=== PATIENT | female | born 2000 | race Hispanic/Latino ===

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

== ENCOUNTER 2023-04-29 23:38 | Emergency (ER) | payer MEDICAID ==
[~2023-04-29] VITALS: Ht 152.4 cm; Wt 78.9 kg
[~2023-04-29 23:38] MED LIST: CEPH500B PO; FERR-82 PO; PREN1TAB80 PO
[2023-04-30 00:20] LABS: CREATININE 0.5 mg/dL (0.5-1.5); POTASSIUM 3.3 mmol/L (3.5-5.1)
[2023-04-30 00:23] LABS: HEMATOCRIT 38.3 % (36-48); MEAN CORPUSCULAR HEMOGLOBIN 30.5 pg (27.0-33.0); MEAN CORPUSCULAR HGB CONC 34.2 g/dL (32.0-36.0); MEAN CORPUSCULAR VOLUME 89.1 fL (80-100); RED BLOOD CELL COUNT(AUTO) 4.3 MIL/uL (4.00-5.50); WHITE BLOOD COUNT (AUTO) 7.9 K/uL (4.8-10.8)
[2023-04-30 00:25] LABS: ALBUMIN 3.8 g/dL (3.5-5.0); TOTAL PROTEIN, SERUM 7.4 g/dL (6.0-8.3)
[2023-04-30 00:32] LABS: APPEARANCE,URINE CLEAR (CLEAR); BILIRUBIN,URINE NEGATIVE (NEGATIVE); COLOR,URINE LIGHT-YELLOW (YELLOW); GLUCOSE, URINE (UA) NEGATIVE (NEGATIVE); KETONES,URINE NEGATIVE (NEGATIVE); LEUKOCYTE ESTERASE ,URINE NEGATIVE Leu/uL (NEGATIVE); NITRATE,URINE NEGATIVE (NEGATIVE); OCCULT BLOOD,URINE NEGATIVE (NEGATIVE); PH,URINE 6.5 (5.0-8.0); PROTEIN,URINE NEGATIVE (NEGATIVE); UROBILINOGEN,URINE 0.2 mg/dL (0.2-1.0)
[2023-04-30 00:36] LABS: HCG,QUALITATIVE URINE POSITIVE (NEGATIVE)
[2023-04-30] MEDS ORDERED: ONDA-104 PO (02:59)
[2023-04-30 03:07] VITALS: BP 128/78
== END 2023-04-30 03:12 | disposition home or self-care (01) ==
LOC: EDH 23:38
DX: O99.611 Diseases of the digestive system complicating pregnancy, first trimester (principal); K80.20 Calculus of gallbladder without cholecystitis without obstruction; O21.9 Vomiting of pregnancy, unspecified; O26.891 Other specified pregnancy related conditions, first trimester; R19.7 Diarrhea, unspecified; Z3A.01 Less than 8 weeks gestation of pregnancy
CPT/HCPCS: 36415; 76705; 76801; 80053; 81003; 81025; 84702; 85027

== ENCOUNTER 2023-05-04 10:18 | Emergency (ER) | payer MEDICAID ==
[~2023-05-04] VITALS: Ht 152.4 cm; Wt 77.1 kg
[~2023-05-04 10:18] MED LIST changes: +ONDA-104 PO
[2023-05-04 11:21] LABS: BASOPHILS % (AUTO) 0.4 % (0.0-5.0); EOSINOPHILS % (AUTO) 0.5 % (0.0-8.0); HEMATOCRIT 38.2 % (36-48); LYMPHOCYTES % (AUTO) 24.1 % (21.0-51.0); MONOCYTES % (AUTO) 3.4 % (3.0-13.0); NEUTROPHILS % (AUTO) 71.2 % (40.0-77.0); PLATELET COUNT (AUTO) 224 K/uL (130-400); RED BLOOD CELL COUNT(AUTO) 4.34 MIL/uL (4.00-5.50); RED CELL DISTRIBUTION WIDTH 11.9 % (11.0-15.5); WHITE BLOOD COUNT (AUTO) 8.1 K/uL (4.8-10.8)
[2023-05-04 11:55] LABS: ALBUMIN 3.5 g/dL (3.5-5.0); CREATININE 0.6 mg/dL (0.5-1.5); POTASSIUM 3.8 mmol/L (3.5-5.1); TOTAL PROTEIN, SERUM 7.2 g/dL (6.0-8.3)
[2023-05-04] MEDS ORDERED: LACTATED RINGERS 1000ML 1,000 ML IV ONE (15:00)
[2023-05-04 15:14] LABS: APPEARANCE,URINE CLEAR (CLEAR); BILIRUBIN,URINE NEGATIVE (NEGATIVE); COLOR,URINE YELLOW (YELLOW); GLUCOSE, URINE (UA) 70 mg/dL (NEGATIVE); KETONES,URINE 20 mg/dL (NEGATIVE); LEUKOCYTE ESTERASE ,URINE NEGATIVE Leu/uL (NEGATIVE); NITRATE,URINE NEGATIVE (NEGATIVE); OCCULT BLOOD,URINE NEGATIVE (NEGATIVE); PROTEIN,URINE 10 mg/dL (NEGATIVE); UROBILINOGEN,URINE 0.2 mg/dL (0.2-1.0)
[2023-05-04 15:30] LABS: BACTERIA,URINE RARE /HPF (None Seen); MUCUS,URINE FEW LPF (None Seen); SQUAMOUS EPITHELIAL CELL,UR FEW /HPF (0-2); WBC,URINE 0-1 /HPF (0-1)
[2023-05-04 18:24] VITALS: BP 105/60
== END 2023-05-04 18:26 | disposition home or self-care (01) ==
LOC: EDH 10:18
DX: O20.0 Threatened abortion (principal); Z3A.01 Less than 8 weeks gestation of pregnancy
CPT/HCPCS: 99284; 96360; 76801; 96361; 80053; 84702; 85025; 86900; 86901; 81001; 36415; J7030

== ENCOUNTER 2024-10-13 09:54 | Emergency (ER) | payer MEDICAID ==
[~2024-10-13] VITALS: Ht 152.4 cm; Wt 74.8 kg
[~2024-10-13 09:54] MED LIST changes: -CEPH500B PO; -FERR-82 PO; -ONDA-104 PO
[2024-10-13 10:41] LABS: APPEARANCE,URINE CLEAR (CLEAR); BILIRUBIN,URINE NEGATIVE (NEGATIVE); COLOR,URINE YELLOW (YELLOW); GLUCOSE, URINE (UA) NEGATIVE (NEGATIVE); KETONES,URINE NEGATIVE (NEGATIVE); LEUKOCYTE ESTERASE ,URINE 75 Leu/uL (NEGATIVE); NITRATE,URINE NEGATIVE (NEGATIVE); OCCULT BLOOD,URINE NEGATIVE (NEGATIVE); PROTEIN,URINE 20 mg/dL (NEGATIVE)
[2024-10-13 10:48] LABS: ADD UA MICROSCOPIC YES
[2024-10-13 10:49] LABS: BACTERIA,URINE RARE /HPF (None Seen); MUCUS,URINE RARE LPF (None Seen); SQUAMOUS EPITHELIAL CELL,UR FEW /HPF (0-2)
[2024-10-13] MEDS: ondanSETRON ODT 4MG TAB SL ONE (11:00)
[2024-10-13 11:18] VITALS: BP 128/90; PULSE 76; RESP 16; TEMP 98; O2SAT 99
[2024-10-13 11:20] LABS: BASOPHILS # (AUTO) 0.04 K/uL (0.00-0.20); BASOPHILS % (AUTO) 0.4 % (0.0-5.0); EOSINOPHILS # (AUTO) 0.05 K/uL (0.00-0.70); EOSINOPHILS % (AUTO) 0.5 % (0.0-8.0); HEMATOCRIT 40.6 % (36-48); LYMPHOCYTES # (AUTO) 1.6 K/uL (1.0-4.8); LYMPHOCYTES % (AUTO) 16.6 % (21.0-51.0); MEAN CORPUSCULAR HEMOGLOBIN 30.3 pg (27.0-33.0); MONOCYTES # (AUTO) 0.3 K/uL (0.1-1.0); MONOCYTES % (AUTO) 3.3 % (3.0-13.0); NEUTROPHILS # (AUTO) 7.6 K/uL (1.8-7.7); NEUTROPHILS % (AUTO) 77.2 % (40.0-77.0); PLATELET COUNT (AUTO) 268 K/uL (130-400); RED BLOOD CELL COUNT(AUTO) 4.56 MIL/uL (4.00-5.50); RED CELL DISTRIBUTION WIDTH 11.6 % (11.0-15.5); WHITE BLOOD COUNT (AUTO) 9.9 K/uL (4.8-10.8)
[2024-10-13 11:34] LABS: CARBON DIOXIDE 28 mmol/L (21-32); CHLORIDE 100 mmol/L (101-111); CREATININE 0.7 mg/dL (0.5-1.0); GLOMERULAR FILTR. RATE CALC 125 mL/min (>90); GLUCOSE,RANDOM 106 mg/dL (70-105); POTASSIUM 3.8 mmol/L (3.5-5.1); SODIUM SERUM 136 mmol/L (136-145); UREA NITROGEN, BLOOD 14 mg/dL (7-18)
[2024-10-13 11:39] LABS: ALANINE AMINOTRANSFERASE 28 U/L (12-78); ALBUMIN 4.1 g/dL (3.5-5.0); ASPARTATE AMINOTRANSFERASE 16 U/L (10-37); BILIRUBIN,DIRECT < 0.1 mg/dL (0.0-0.3); BILIRUBIN,TOTAL 0.2 mg/dL (0.2-1.0); TOTAL PROTEIN, SERUM 7.5 g/dL (6.0-8.3)
--- NOTE | 2024-10-13 11:43 | HMCIMG ---
US ABDOMINAL RUQ\E\LTD HISTORY: Abdominal pain COMPARISON: None TECHNIQUE: Right upper quadrant abdominal ultrasound study was performed. FINDINGS: Liver measures 14 cm. The visualized portion of the pancreas is within normal limits. Liver is echogenic consistent with liver parenchymal disease. Gallstones are seen in the gallbladder. Common duct measures 3 mm. No evidence of gallbladder wall thickening is seen. Right kidney measures 11 x 5 x 5 cm. No hydronephrosis is seen of the right kidney. IMPRESSION: 1. Gallstones. No ductal dilatation is seen. 2. No hydronephrosis is seen.
[2024-10-13] MEDS ORDERED: FAMO-136 PO (12:42)
[2024-10-13] MEDS ORDERED: KETO10TA2 PO (12:42)
[2024-10-13] MEDS ORDERED: ONDA-243 PO (12:42)
--- NOTE | 2024-10-13 12:45 | ERN ---
General Chief Complaint: Abdominal Pain Stated Complaint: RUQ PAIN Time Seen by MD: :59 Time Seen by Midlevel: 09:59 Source: patient History of Present Illness Initial Comments Patient is a 24-year-old female with a past medical history of cholelithiasis presenting to the emergency department with right upper quadrant abdominal pain. Patient states her symptoms started yesterday at 2:00 a.m. in the morning. Her symptoms consist of nausea and intermittent episodes of sharp/crampy right upper quadrant abdominal pain. She denies any episodes of vomiting. Denies any diarrhea, fever, chills, or any other symptoms at this time. She has been seen previously in the emergency department for the same complaint where she was diagnosed with coli lithiasis. She has not seen a primary care doctor outpatient and has not been referred to a general surgeon. Denies any past surgical history. Denies being . Allergies: Coded Allergies: No Known Drug Allergies (Unverified Allergy, Unknown, 12/14/23) Home Meds Reported Medications Vits W-Ca,Fe,FA(<1Mg) ( Vitamins) 1 Each Tablet, 1 EACH PO DAILYDINNER, TAB 08/21/21 Past Medical History Past Medical History: Gallstones Past Surgical History: None Family History Family History: Negative Social History Social History: Negative, Lives with family Female( History) LMP: Sep 20, 2024 : 2 Para: 1 Aborts: 0 ROS Dictation CONSTITUTIONAL: Negative except for HPI HEAD/FACE: Negative except for HPI EENT: Negative except for HPI RESPIRATORY: Negative except for HPI GASTROINTESTINAL/ABDOMINAL: Negative except for HPI GENITOURINARY: Negative except for HPI MUSCULOSKELETAL: Negative except for HPI INTEGUMENTARY: Negative except for HPI NEUROLOGICAL/PSYCH: Negative except for HPI HEMATOLOGIC/LYMPHATIC: Negative except for HPI All Systems Negative, Except as noted above. 13 point review of systems assessed and all negative except for above. Physical Exam Physical Exam Dictation Vital Signs reviewed General Appearance: Alert, oriented x 3, no acute distress, well developed, nourished. Head and Face: non-traumatic. Eyes: PERRL, pink conjunctivas, eyelid no trauma, anterior chamber with arcus senilis. Ears: Pinnas intact and no signs of trauma or erythema ear canals clear and no discharge TM no erythema Nose: No discharge, no bleeding. Oropharynx: Mouth normal, tongue pink, pharynx clear,no erythema, tonsils no exudates, no abscesses noted, mucous membrane moist Neck: Supple, non-tender, no thyromegaly, no masses, no JVD, no bruits Breast:Deferred Chest:No tenderness, no crepitus, no paradoxical movement, no retractions Lungs:Clear, well-ventilated, symmetric, no rales, no wheezing, no rhonchi, no stridor, good breath sounds bilaterally Heart: Regular rate, regular rhythm, no murmur, no gallops Vascular: no peripheral edema, Abdomen: Soft, positive bowel sounds, nondistended, no guarding, nontender, no rebound, no masses no hepatomegaly, no splenomegaly, no Gross's sign, no hernias. Rectal: Deferred Genital: Deferred Neurological: Normal speech, motor function intact, sensory function intact Musculoskeletal: Neck nontender, full range of motion, back nontender, full range of motion, Extremities: nontender, full range of motion Skin: Color pink, dry, no turgor, no rash, no lacerations, no abrasions, no contusions. Lymphatic: Deferred Results Laboratory and Microbiology Lab and Micro Result Laboratory Tests Test 10/13/24 10:11 10/13/24 11:05 10/13/24 11:08 Urine Color YELLOW (YELLOW) Urine Appearance CLEAR (CLEAR) Urine pH 7.0 (5.0-8.0) Urine Specific [place] 1.037 (1.001-1.031) Urine Protein 20 mg/dL (NEGATIVE) H Urine Glucose (UA) NEGATIVE mg/dL (NEGATIVE) Urine Ketones NEGATIVE mg/dL (NEGATIVE) Urine Occult Blood NEGATIVE (NEGATIVE) Urine Nitrate NEGATIVE (NEGATIVE) Urine Bilirubin NEGATIVE mg/dL (NEGATIVE) Urine Urobilinogen 2.0 mg/dL (0.2-1.0) H Urine Leukocyte Esterase 75 Jose/uL (NEGATIVE) H Urine RBC 2-5 /HPF (0-1) H Urine WBC 2-5 /HPF (0-1) H Urine Squamous Epithelial Cells FEW /HPF (0-2) Urine Bacteria RARE /HPF (None Seen) Serum Test, Qualitative NEGATIVE (NEGATIVE) White Blood Count 9.9 K/uL (4.8-10.8) Red Blood Count 4.56 MIL/uL (4.00-5.50) Hemoglobin 13.8 g/dL (12.0-16.0) Hematocrit 40.6 % (36-48) Mean Corpuscular Volume 89.0 fL (79-99) Mean Corpuscular Hemoglobin 30.3 pg (27.0-33.0) Mean Corpuscular Hemoglobin Concent 34.0 g/dL (32.0-36.0) Red Cell Distribution Width 11.6 % (11.0-15.5) Platelet Count 268 K/uL (130-400) Mean Platelet Volume 9.6 fL (7.5-10.5) Immature Granulocyte % (Auto) 2.0 % (0-1) H Neutrophils (%) (Auto) 77.2 % (40.0-77.0) H Lymphocytes (%) (Auto) 16.6 % (21.0-51.0) L Monocytes (%) (Auto) 3.3 % (3.0-13.0) Eosinophils (%) (Auto) 0.5 % (0.0-8.0) Basophils (%) (Auto) 0.4 % (0.0-5.0) Neutrophils # (Auto) 7.6 K/uL (1.8-7.7) Lymphocytes # (Auto) 1.6 K/uL (1.0-4.8) Monocytes # (Auto) 0.3 K/uL (0.1-1.0) Eosinophils # (Auto) 0.05 K/uL (0.00-0.70) Basophils # (Auto) 0.04 K/uL (0.00-0.20) Absolute Immature Granulocyte (auto 0.20 K/uL (0-1) Nucleated Red Blood Cells 0.0 % (0.0-0.19) Sodium Level 136 mmol/L (136-145) Potassium Level 3.8 mmol/L (3.5-5.1) Chloride Level 100 mmol/L (101-111) L Carbon Dioxide Level 28 mmol/L (21-32) Blood Urea Nitrogen 14 mg/dL (7-18) Creatinine 0.7 mg/dL (0.5-1.0) Glomerular Filtration Rate Calc 125 mL/min (>90) Random Glucose 106 mg/dL (70-105) H Total Calcium 9.0 mg/dL (8.5-10.1) Total Bilirubin 0.2 mg/dL (0.2-1.0) Direct Bilirubin < 0.1 mg/dL (0.0-0.3) Aspartate Amino Transf (AST/SGOT) 16 U/L (10-37) Alanine Aminotransferase (ALT/SGPT) 28 U/L (12-78) Alkaline Phosphatase 80 U/L (50-136) Total Protein 7.5 g/dL (6.0-8.3) Albumin 4.1 g/dL (3.5-5.0) Lipase 42 U/L (16-77) Labs Reviewed?: Yes MDM MDM: Patient is a 24-year-old female with a past medical history of cholelithiasis presenting to the emergency department with right upper quadrant abdominal pain. Patient states her symptoms started yesterday at 2:00 a.m. in the morning. Her symptoms consist of nausea and intermittent episodes of sharp/crampy right upper quadrant abdominal pain. She denies any episodes of vomiting. Denies any diarrhea, fever, chills, or any other symptoms at this time. She has been seen previously in the emergency department for the same complaint where she was diagnosed with coli lithiasis. She has not seen a primary care doctor outpatient and has not been referred to a general surgeon. Denies any past surgical history. Denies being . On physical examination patient is in no acute distress. Her abdominal examination is unremarkable. There was no right upper quadrant tenderness, rebound, or guarding. Given her history of multiple biliary colics an ultrasound was performed which does not reveal any evidence acute cholecystitis. Her blood work including her liver function tests and bilirubin are within normal ranges. Patient was given p.o. Zofran and Toradol IM in the emergency department. She has had no episodes of right upper quadrant abdominal pain along with nausea or vomiting. She has stable at this time. She will be discharged home with outpatient management. She was given a referral for General surgery. Differential diagnosis: Acute cholecystitis, pancreatitis, cholelithiasis, biliary colic There are no social concerns with this patient. Prescription drug management Prescriptions will include: Zofran, Pepcid, Toradol Medical management and examination interpretation discussions were had by me with other qualified healthcare professionals as indicated for the patient's care. ED Course Orders Procedure Category Date Status Time Cbc With Differential LAB 10/13/24 Complete 10:00 Lipase LAB 10/13/24 Complete 10:00 Urinalysis Profile LAB 10/13/24 Complete 10:00 Basic Metabolic Panel LAB 10/13/24 Complete 10:01 Hepatic Function Panel LAB 10/13/24 Complete 10:01 Testing, LAB 10/13/24 Complete Serum Hcg 10:01 Ondansetron Odt 4mg PHA 10/13/24 Complete Tab (Zofran 4mg Odt) 10:30 Us Abdominal Ruq\Ltd US 10/13/24 Resulted 10:18 Culture Urine JOON 10/13/24 In Process 10:48 Ketorolac PHA 10/13/24 In Process Tromethamine 15mg/Ml 13:00 Current Medications Medications (Trade) Dose Ordered Sig/Bacilio Route PRN Reason Start Time Stop Time Status Last Admin Dose Admin Ketorolac Tromethamine (toRADol) 15 mg ONCE ONCE IM 10/13/24 13:00 10/13/24 13:01 Ondansetron HCl (zoFRAN 4MG ODT) 4 mg ONCE ONCE SL 10/13/24 10:30 10/13/24 10:31 DC 10/13/24 11:00 Vital Signs Date Time Temp Pulse Resp B/P (MAP) Pulse Ox O2 Delivery O2 Flow Rate FiO2 10/13/24 11:18 98.1 76 16 128/90 99 Room Air* 0 21 10/13/24 09:55 98.1 78 16 128/90 99 Room Air 0 [place] [address] IMAGING REPORT Signed PATIENT: ASHVIN KOLB MR#: [id number] : 2000 SEX: F AGE: 24 LOCATION: [facility] ORDER [id number] STATUS: REG ER REPORT#: [id number] SERVICE 1018 REASON: RUQ abd pain r/o acute cholecystitis ORDERING PHYSICIAN: JOHN ZUÑIGA PROCEDURE: ABDRUQLTD - US ABDOMINAL RUQ\LTD US ABDOMINAL RUQ\E\LTD HISTORY: Abdominal pain COMPARISON: None TECHNIQUE: Right upper quadrant abdominal ultrasound study was performed. FINDINGS: Liver measures 14 cm. The visualized portion of the pancreas is within normal limits. Liver is echogenic consistent with liver parenchymal disease. Gallstones are seen in the gallbladder. Common duct measures 3 mm. No evidence of gallbladder wall thickening is seen. Right kidney measures 11 x 5 x 5 cm. No hydronephrosis is seen of the right kidney. IMPRESSION: 1. Gallstones. No ductal dilatation is seen. 2. No hydronephrosis is seen. DICTATED BY: FATOU RAMOS MD DATE: 10/13/241139 ELECTRONICALLY SIGNED BY: FATOU RAMOS MD DATE: 10/13/24 114 DX & DISP Disposition: Discharge Departure Impression: Primary Impression: Cholelithiases Condition: Stable Scripts Ketorolac Tromethamine (Ketorolac Tromethamine) 10 Mg Tablet 1 TAB PO TID for pain for 5 Days, #15 TAB 0 Refills Prov: JOHN ZUÑIGA 10/13/24 Famotidine (Pepcid) 20 Mg Tablet 1 TAB PO BID for 7 Days, #14 TAB 0 Refills Prov: JOHN ZUÑIGA 10/13/24 Ondansetron (Ondansetron Odt) 4 Mg Tab.rapdis 4 MG PO BID for 7 Days, #14 TAB Prov: JOHN ZUÑIGA 10/13/24 Additional Instructions: Your blood work today is unremarkable. Your liver/gallbladder function tests are normal and do not show any evidence of obstruction. Your ultrasound shows gallstones in the gallbladder but there was no evidence of infection. You will need to see a general surgeon for outpatient evaluation. I have given you a referral to our general surgeon on-call see can call his office and schedule an appointment seek potentially have gallbladder removal surgery outpatient. I have given you a prescription for Zofran, Pepcid, and Toradol which should help with your symptoms. Follow up with your primary care doctor in 2-3 days for repeat evaluation. Return to the ER if you develop any new or worsening symptoms Referrals: MARY LOU DAMON JR, MD (PCP) GEORGE HIRSCH MD Time of Disposition: 12:40 I have reviewed the case, and I agree with, Diagnosis and Plan JOHN ZUÑIGA Oct 13, 2024 12:45
[2024-10-13] MEDS: ketOROlac 15MG/ML VIAL (15MG/ML) IM ONE (13:02)
== END 2024-10-13 13:06 | disposition home or self-care (01) ==
LOC: EDH 09:54
DX: K80.20 Calculus of gallbladder without cholecystitis without obstruction (principal); Z79.899 Other long term (current) drug therapy
CPT/HCPCS: 99285; 76705; 80076; 80048; 84703; 83690; 85025; 87086; 81001; 36415; 96372; J1885

== ENCOUNTER 2025-01-19 01:54 | Emergency (ER) | payer SELFPAY ==
[~2025-01-19] VITALS: Ht 152.4 cm; Wt 74.8 kg
[~2025-01-19 01:54] MED LIST changes: +FAMO-136 PO; +KETO10TA2 PO; +ONDA-243 PO
--- NOTE | 2025-01-19 02:23 | ERN ---
ED Note History of Present Illness Stated Complaint: ABD PAIN Chief Complaint: Abdominal Pain Time Seen by MD: 02:03 Time Seen by Midlevel: 02:03 Dictation: The patient is a 24-year-old female with a history of gallstones who presents to the emergency department with complaints of right upper abdominal pain onset 10:00 p.m. associated with nausea nonbloody diarrhea. Patient denies any vomiting. Denies any fevers. Allergies: Coded Allergies: No Known Drug Allergies (Unverified Allergy, Unknown, 12/14/23) Home Meds Active Scripts Ketorolac Tromethamine (Ketorolac Tromethamine) 10 Mg Tablet, 1 TAB PO TID for pain for 5 Days, #15 TAB 0 Refills Prov:JOHN ZUÑIGA 10/13/24 Famotidine (Pepcid) 20 Mg Tablet, 1 TAB PO BID for 7 Days, #14 TAB 0 Refills Prov:JOHN ZUÑIGA 10/13/24 Ondansetron (Ondansetron Odt) 4 Mg Tab.rapdis, 4 MG PO BID for 7 Days, #14 TAB Prov:JOHN ZUÑIGA 10/13/24 Reported Medications Vits W-Ca,Fe,FA(<1Mg) ( Vitamins) 1 Each Tablet, 1 EACH PO DAILYDINNER, TAB 08/21/21 Past Medical History Past Medical History: Gallstones, Other Additional Past Medical Hx: " GALLBLADDER ISSUES" Surgical History: None Family History: Negative Social History: Negative, Lives with family LMP: Dec 19, 2024 : 2 Para: 1 Aborts: 0 RN Note Reviewed/Agreed w/PFSH: Yes Review of System Dictation Constitutional: Negative for fever,chills, and weight loss Eyes: Negative for injury, pain,redness, and discharge ENT: Negative for injury,pain or swelling Cardiovascular: Negative for chest pain, palpitations, and edema Respiratory: Negative for shortness of breath, cough, and wheezing, Abdomen/GI: Negative for vomiting,and constipation positive for abdominal pain, nausea, diarrhea Back: Negative for injury and pain : Negative for injury, bleeding and discharge MS/Extremity: Negative for injury and deformity Skin: Negative for rash, and discoloration Neuro: Negative for headache, weakness, numbness, tingling, and seizure Psych: Negative for suicide ideation, homicidal ideation, and hallucinations Initial Vital Sign VS Vital Signs Date Time Temp Pulse Resp B/P (MAP) Pulse Ox O2 Delivery O2 Flow Rate FiO2 01/19/25 01:55 97.3 78 20 138/90 100 Room Air 01/19/25 02:37 0 21 Physical Exam Dictation Vital Signs reviewed General Appearance: Alert, oriented x 3, no acute distress, well developed, no urished. Head and Face: non-traumatic. Eyes: PERRL, pink conjunctivas, eyelid no trauma, anterior chamber with arcus senilis. Ears: Pinnas intact and no signs of trauma or erythema ear canals clear and no discharge TM no erythema Nose: No discharge, no bleeding. Oropharynx: Mouth normal, tongue pink. pharynx clear,no erythema, tonsils no exudates, no abscesses noted, mucous me mbrane moist Neck: Supple, non-tender, no thyromegaly, no masses, no JVD, no bruits Breast:Deferred Chest:No tenderness, no crepitus, no paradoxical movement, no retractions Lungs:Clear, well-ventilated, symmetric, no rales, no wheezing, no rhonchi, no stridor, good breath sounds bilaterally Heart: Regular rate, regular rhythm, no murmur, no gallops Vascular: no peripheral edema, Abdomen: Soft, positive bowel sounds, nondistended, no guarding, Right upper quadrant tenderness no rebound, no masses no hepatomegaly, no splenomegaly, Gross's sign, no hernias. Rectal: Deferred Genital: Deferred Neurological: Normal speech, motor function intact, sensory function intact Musculoskeletal: Neck nontender, full range of motion, back nontender, full range of motion, Extremities: nontender, full range of motion Skin: Color pink, dry, no turgor, no rash, no lacerations, no abrasions, no contusions. Lymphatic: Deferred Results (Laboratory/Radiology) Laboratory/Radiology Laboratory Tests Test 01/19/25 02:24 White Blood Count 8.9 K/uL (4.8-10.8) Red Blood Count 4.32 MIL/uL (4.00-5.50) Hemoglobin 13.1 g/dL (12.0-16.0) Hematocrit 38.3 % (36-48) Mean Corpuscular Volume 88.7 fL (79-99) Mean Corpuscular Hemoglobin 30.3 pg (27.0-33.0) Mean Corpuscular Hemoglobin Concent 34.2 g/dL (32.0-36.0) Red Cell Distribution Width 11.9 % (11.0-15.5) Platelet Count 234 K/uL (130-400) Mean Platelet Volume 10.5 fL (7.5-10.5) Immature Granulocyte % (Auto) 0.3 % (0-1) Neutrophils (%) (Auto) 68.6 % (40.0-77.0) Lymphocytes (%) (Auto) 25.6 % (21.0-51.0) Monocytes (%) (Auto) 4.5 % (3.0-13.0) Eosinophils (%) (Auto) 0.7 % (0.0-8.0) Basophils (%) (Auto) 0.3 % (0.0-5.0) Neutrophils # (Auto) 6.1 K/uL (1.8-7.7) Lymphocytes # (Auto) 2.3 K/uL (1.0-4.8) Monocytes # (Auto) 0.4 K/uL (0.1-1.0) Eosinophils # (Auto) 0.06 K/uL (0.00-0.70) Basophils # (Auto) 0.03 K/uL (0.00-0.20) Absolute Immature Granulocyte (auto 0.03 K/uL (0-1) Nucleated Red Blood Cells 0.0 % (0.0-0.19) Sodium Level 137 mmol/L (136-145) Potassium Level 3.8 mmol/L (3.5-5.1) Chloride Level 102 mmol/L (101-111) Carbon Dioxide Level 27 mmol/L (21-32) Blood Urea Nitrogen 10 mg/dL (7-18) Creatinine 0.5 mg/dL (0.5-1.0) Glomerular Filtration Rate Calc 136 mL/min (>90) Random Glucose 106 mg/dL (70-105) H Total Calcium 9.0 mg/dL (8.5-10.1) Total Bilirubin 0.3 mg/dL (0.2-1.0) Direct Bilirubin < 0.1 mg/dL (0.0-0.3) Aspartate Amino Transf (AST/SGOT) 25 U/L (10-37) Alanine Aminotransferase (ALT/SGPT) 25 U/L (12-78) Alkaline Phosphatase 63 U/L (50-136) Total Protein 7.3 g/dL (6.0-8.3) Albumin 3.8 g/dL (3.5-5.0) Lipase 53 U/L (16-77) Serum Test, Qualitative NEGATIVE (NEGATIVE) Labs Reviewed?: Yes Ultrasound Comment: Ultrasound of the abdomen by Stat Rad reading showed gallstones with a distended gallbladder however there was no wall thickening or pericholecystic fluid. Also noted was hepatic steatosis ED Course ED Course Orders Procedure Category Date Status Time Cbc With Differential LAB 01/19/25 Complete 02:20 Urinalysis Profile LAB 01/19/25 In Process 02:20 Us Abdominal Ruq\\Ltd US 01/19/25 Taken 02:20 0.9%Nacl 1000ml (Ns PHA 01/19/25 Complete 1000ml) 02:30 Morphine 4mg Syg PHA 01/19/25 Complete (Morphine 4mg Syg) 02:30 Ondansetron 4mg Inj PHA 01/19/25 Complete (Zofran 4mg Inj) 02:30 Pantoprazole 40mg Inj PHA 01/19/25 Complete (Protonix 40mg Inj 02:30 Lipase LAB 01/19/25 Complete 02:20 Basic Metabolic Panel LAB 01/19/25 Complete 02:20 Hepatic Function Panel LAB 01/19/25 Complete 02:20 Testing, LAB 01/19/25 Complete Serum Hcg 02:37 Current Medications Medications (Trade) Dose Ordered Sig/Bacilio Route PRN Reason Start Time Stop Time Status Last Admin Dose Admin Morphine Sulfate (morPHINE 4MG SYG) 4 mg ONCE ONCE IVP 01/19/25 02:30 01/19/25 02:31 DC 01/19/25 02:42 Ondansetron HCl (zoFRAN 4MG INJ) 4 mg ONCE ONCE IVP 01/19/25 02:30 01/19/25 02:31 DC 01/19/25 02:41 Pantoprazole Sodium (PROTonix 40MG INJ) 40 mg ONCE ONCE IVP 01/19/25 02:30 01/19/25 02:31 DC 01/19/25 02:41 Sodium Chloride 1,000 ml @ 0 mls/hr ONCE ONCE IV 01/19/25 02:30 01/19/25 02:31 DC 01/19/25 02:41 Vital Signs Date Time Temp Pulse Resp B/P (MAP) Pulse Ox O2 Delivery O2 Flow Rate FiO2 01/19/25 02:37 99.1 63 20 122/72 100 Room Air* 0 21 01/19/25 01:55 97.3 78 20 138/90 100 Room Air 4:57 a.m. I have explained to the patient that what she has is likely a biliary colic and dyspepsia symptoms. Ultrasound of the abdomen did not show any gallbladder wall thickening or pericholecystic fluid suggestive of acute cholecystitis. Patient does not have any leukocytosis and the pain is much improved. She will be discharged to home. I counseled her extensively on dietary changes and avoiding Rich greasy and deep fried foods. Also to avoid cheesy sauces that could aggravate the biliary colic. She needs to also lose weight and she verbalized full understanding. She will follow up as outpatient Medical Decision Making MDM The patient is a 24-year-old female with a history of gallstones who presents to the emergency department with complaints of right upper abdominal pain onset 10:00 p.m. associated with nausea nonbloody diarrhea. Patient denies any vomiting. Denies any fevers. Problem List Problem List: (1) Cholelithiases (2) Vomiting and diarrhea (3) Biliary colic DX & DISP Disposition: Discharge Departure Impression: Primary Impression: Cholelithiases Additional Impressions: Vomiting and diarrhea, Obesity (BMI 30.0-34.9), Biliary colic Condition: Stable Additional Instructions: Patient and the caregiver have been informed of all the diagnostic tests and the imaging conducted during the today's visit to the emergency room and has verbalized understanding of the results I have personally reviewed and interpreted all diagnostic exams performed here in the ER today as well as the vital signs documented by the nursing staff. The patient is now being discharged to home and should follow up with the primary care physician or the specialist as directed by the ER staff. Follow-up with primary care provider in 1 to 2 days. Take medications as directed here in the emergency room. Okay to continue home medications unless otherwise discussed during your visit in the emergency room today. Return to your nearest emergency room if symptoms worsen or if there is no improvement. Call 911 if you need immediate assistance. Take Tylenol or Motrin [id number] as needed and if no contraindications are present. Increase oral hydration. A wound culture or urine culture was ordered here in the emergency room department please follow-up with primary care provider and advise them to get repeat ports from our facility. If you had any Omkar wrap/splints that were applied here, please do not remove them until you see your primary care or specialty. Referrals: MARY LOU DAMON JR, MD (PCP) LYUBOV OLIVARES Jan 19, 2025 02:23 MONIQUE TAVERAS MD Jan 19, 2025 04:27
[2025-01-19 02:30] LABS: BASOPHILS # (AUTO) 0.03 K/uL (0.00-0.20); BASOPHILS % (AUTO) 0.3 % (0.0-5.0); EOSINOPHILS # (AUTO) 0.06 K/uL (0.00-0.70); EOSINOPHILS % (AUTO) 0.7 % (0.0-8.0); HEMATOCRIT 38.3 % (36-48); IMMATURE GRANULOCYTE ABSOLUTE 0.03 K/uL (0-1); LYMPHOCYTES # (AUTO) 2.3 K/uL (1.0-4.8); LYMPHOCYTES % (AUTO) 25.6 % (21.0-51.0); MEAN CORPUSCULAR HEMOGLOBIN 30.3 pg (27.0-33.0); MEAN CORPUSCULAR HGB CONC 34.2 g/dL (32.0-36.0); MEAN CORPUSCULAR VOLUME 88.7 fL (79-99); MONOCYTES # (AUTO) 0.4 K/uL (0.1-1.0); MONOCYTES % (AUTO) 4.5 % (3.0-13.0); NEUTROPHILS # (AUTO) 6.1 K/uL (1.8-7.7); NEUTROPHILS % (AUTO) 68.6 % (40.0-77.0); PLATELET COUNT (AUTO) 234 K/uL (130-400); RED BLOOD CELL COUNT(AUTO) 4.32 MIL/uL (4.00-5.50); RED CELL DISTRIBUTION WIDTH 11.9 % (11.0-15.5); WHITE BLOOD COUNT (AUTO) 8.9 K/uL (4.8-10.8)
[2025-01-19 02:40] LABS: CARBON DIOXIDE 27 mmol/L (21-32); CHLORIDE 102 mmol/L (101-111); CREATININE 0.5 mg/dL (0.5-1.0); GLOMERULAR FILTR. RATE CALC 136 mL/min (>90); GLUCOSE,RANDOM 106 mg/dL (70-105); POTASSIUM 3.8 mmol/L (3.5-5.1); SODIUM SERUM 137 mmol/L (136-145); UREA NITROGEN, BLOOD 10 mg/dL (7-18)
[2025-01-19] MEDS: ondanSETRON 4MG INJ IVP ONE (02:41)
[2025-01-19] MEDS: PANTOPrazole 40 MG/VIAL IVP ONE (02:41)
[2025-01-19] MEDS: 0.9%NACL 1000ML 1,000 ML IV ONE (02:41)
[2025-01-19] MEDS: morPHINE 4 MG SYG IVP ONE (02:42)
[2025-01-19 02:44] LABS: ALANINE AMINOTRANSFERASE 25 U/L (12-78); ALBUMIN 3.8 g/dL (3.5-5.0); ASPARTATE AMINOTRANSFERASE 25 U/L (10-37); BILIRUBIN,DIRECT < 0.1 mg/dL (0.0-0.3); BILIRUBIN,TOTAL 0.3 mg/dL (0.2-1.0); TOTAL PROTEIN, SERUM 7.3 g/dL (6.0-8.3)
[2025-01-19 04:48] LABS: APPEARANCE,URINE CLOUDY (CLEAR); BILIRUBIN,URINE NEGATIVE (NEGATIVE); COLOR,URINE LIGHT-YELLOW (YELLOW); GLUCOSE, URINE (UA) NEGATIVE (NEGATIVE); KETONES,URINE NEGATIVE (NEGATIVE); LEUKOCYTE ESTERASE ,URINE 75 Leu/uL (NEGATIVE); NITRATE,URINE NEGATIVE (NEGATIVE); OCCULT BLOOD,URINE NEGATIVE (NEGATIVE); PH,URINE 7.5 (5.0-8.0); PROTEIN,URINE NEGATIVE (NEGATIVE); UROBILINOGEN,URINE 0.2 mg/dL (0.2-1.0)
[2025-01-19 04:58] LABS: ADD UA MICROSCOPIC YES
[2025-01-19 04:59] LABS: SQUAMOUS EPITHELIAL CELL,UR RARE /HPF (0-2)
[2025-01-19 05:12] VITALS: BP 116/69; PULSE 60; RESP 16; TEMP 98.6; O2SAT 100
--- NOTE | 2025-01-19 08:55 | HMCIMG ---
US ABDOMINAL RUQ\E\LTD HISTORY: Abdominal pain COMPARISON: None TECHNIQUE: Right upper quadrant abdominal ultrasound study was performed. FINDINGS: Liver measures 15 cm. The visualized portion of the pancreas is within normal limits. Liver is echogenic consistent with liver parenchymal disease. Gallstones are seen in the distended gallbladder. Common duct measures 4 mm. No evidence of gallbladder wall thickening is seen. Right kidney measures 11.2 x 5.1 x 4.1 cm. No hydronephrosis is seen of the right kidney. IMPRESSION: 1. Gallstones. No ductal dilatation is seen. 2. No hydronephrosis is seen.
== END 2025-01-19 05:13 | disposition home or self-care (01) ==
LOC: EDH 01:54
DX: K80.70 Calculus of gallbladder and bile duct without cholecystitis without obstruction (principal); E66.9 Obesity, unspecified; Z68.30 Body mass index [BMI] 30.0-30.9, adult; Z79.899 Other long term (current) drug therapy
CPT/HCPCS: 99285; 96374; 76705; 96375; 96361; 80076; 80048; 84703; 83690; 85025; 87086 ×2; 87186; 81001; 36415; J7030; J2405; J2270; J2470